=== PATIENT | male | born 1960 ===

== ENCOUNTER 2021-12-13 20:03 | Observation (INO) ==
[2021-12-14] MEDS ORDERED: *HR* LORazepam 1 MG TABLET PO ONE (08:52)
[2021-12-14] MEDS ORDERED: Ondansetron 4 MG/2 ML VIAL IVP PRN (16:03)
[2021-12-14] MEDS ORDERED: Naloxone 0.4 MG/ML INJ IVP PRN (16:03)
[2021-12-14] MEDS ORDERED: Haloperidol Lactate 5 MG/ML VIAL IVP PRN (16:53)
[2021-12-14 19:00] LABS: Bilirubin,Urine Negative (Negative); Blood,Urine Negative (Negative); Clarity,Urine Clear (Clear); Color,Urine Light-Yellow (Yellow); Glucose,Urine (UA) Normal (Normal); Ketones,Urine 10 mg/dL (Negative); Leukocyte Esterase,Urine Negative (Negative); Nitrite,Urine Negative (Negative); Protein,Urine Trace mg/dL (Neg-Trace); Specific Gravity,Urine 1.018 (1.010-1.025); Urobilinogen,Urine Normal (Normal)
[2021-12-14 19:13] LABS: Amphetamine Screen,Urine Negative ng/mL (Cutoff=1000); Barbiturate Screen,Urine Negative ng/mL (Cutoff=200); Benzodiazepines Screen,Urine Negative ng/mL (Cutoff=200); Cannabinoid Screen,Urine Negative ng/mL (Cutoff = 50); Cocaine Screen,Urine Negative ng/mL (Cutoff= 300); Opiate Screen,Urine Negative ng/mL (Cutoff=300); Phencyclidine Screen,Urine Negative ng/mL (Cutoff=25)
[2021-12-14] MEDS ORDERED: OLANZapine 5 MG TAB.RAPDIS PO SCH (21:00)
[2021-12-14] MEDS: Divalproex (12 HR) 500 MG TABLET PO SCH (21:48)
[2021-12-14] MEDS: OLANZapine 5 MG TAB.RAPDIS PO SCH (21:48)
[2021-12-15 02:59] LABS: Basophils # 0.1 K/mcL (0.0-0.2); Basophils % 0.9 %; Eosinophils # 0.2 K/mcL (0.0-0.6); Eosinophils % 2.3 %; Hematocrit 40.6 % (37.5-50.1); Hemoglobin 13.7 g/dL (12.9-16.9); Immature Granulocytes % 0.3 % (0-4); Lymphocytes # 2.2 K/mcL (0.6-4.6); Lymphocytes % 33.1 %; Mean Corpuscular HGB Conc 33.7 g/dL (31.6-35.5); Mean Corpuscular Hemoglobin 30.9 pg (28.0-33.3); Mean Corpuscular Volume 91.6 fL (83.0-100.0); Mean Platelet Volume 11.4 fL (9.4-12.4); Monocytes # 0.8 K/mcL (0.0-1.3); Monocytes % 12.2 %; Neutrophils # 3.4 K/mcL (1.6-8.9); Platelet Count 203 K/mcL (140-400); Red Blood Count 4.43 M/mcL (4.19-5.50); Red Cell Distribution Width 12.4 % (11.5-14.5); Segmented Neutrophils % 51.2 %; White Blood Count 6.6 K/mcL (4.3-11.1)
[2021-12-15 03:17] LABS: BUN/Creatinine Ratio 22 (6-26); Blood Urea Nitrogen 19 mg/dL (8-23); Calcium 9.2 mg/dL (8.6-10.3); Carbon Dioxide 26 mEq/L (23-29); Chloride 108 mEq/L (98-107); Glucose 97 mg/dL (70-105); Magnesium 2.2 mg/dL (1.6-2.6); Osmolality,Calculated 290 (280-300); Potassium 4.1 mEq/L (3.5-5.1); Sodium 139 mEq/L (136-145); eGFR For African Americans > 60 (> 60); eGFR For Non-African Americans > 60 (> 60)
[2021-12-15 03:48] LABS: Valproate 27 mcg/mL (50-100)
[2021-12-15] MEDS: Divalproex (12 HR) 500 MG TABLET PO SCH ×2 (08:06→20:52)
[2021-12-15] MEDS: lisinopriL 20 MG TABLET PO SCH (08:07)
[2021-12-15] MEDS: amLODIPine 5 MG TABLET PO SCH (08:07)
[2021-12-15] MEDS: OLANZapine 5 MG TAB.RAPDIS PO SCH (20:52)
[2021-12-16] MEDS: Divalproex (12 HR) 500 MG TABLET PO SCH ×2 (08:37→19:53)
[2021-12-16] MEDS: amLODIPine 5 MG TABLET PO SCH (08:37)
[2021-12-16] MEDS: lisinopriL 20 MG TABLET PO SCH (08:37)
[2021-12-16] MEDS: OLANZapine 5 MG TAB.RAPDIS PO SCH (19:54)
[2021-12-17 06:44] VITALS: BP 133/86; PULSE 66; TEMP 97.6; O2SAT 98
[2021-12-17] MEDS: lisinopriL 20 MG TABLET PO SCH (09:18)
[2021-12-17] MEDS: amLODIPine 5 MG TABLET PO SCH (09:18)
[2021-12-17] MEDS: Divalproex (12 HR) 500 MG TABLET PO SCH (09:18)
== END 2021-12-17 11:45 | disposition home or self-care (01) ==
LOC: 3BNU 20:03 → EMEROOARM 20:03 → SUATTDRO 12-14 16:34 → 3BNU 12-14 17:50
PROVIDERS: ADMIT Pharmacist; ATTEND Registered Nurse